=== PATIENT | female | born 1955 | race Two or more races ===

== ENCOUNTER 2018-01-24 14:50 | Emergency (ER) | payer OTHER ==
[~2018-01-24] VITALS: Ht 149.9 cm; Wt 58.5 kg
[2018-01-24 15:02] VITALS: Ht 149.9 cm; Wt 58.5 kg
[2018-01-24 16:18] LABS: BASOPHIL % 0.8 % (0-2); PLATELET COUNT 303 x10^3mcL (130-400); RED CELL DISTRIBUTION WIDTH 12.7 % (11.5-14.5)
[2018-01-24 16:30] LABS: CALCIUM 8.7 mg/dL (8.5-10.1); CARBON DIOXIDE 25.6 mmol/L (21-32); CHLORIDE SERUM 108 mmol/L (98-107); CREATININE SERUM 0.7 mg/dL (0.6-1.0); GFR1 > 60 mL/min; GLUCOSE SERUM 101 mg/dL (74-106); POTASSIUM SERUM 4.8 mmol/L (3.5-5.1); SODIUM SERUM 144 mmol/L (136-145)
[2018-01-24 16:33] LABS: C REACTIVE PROTEIN 0.4 mg/dL (<=0.9); URIC ACID 4.8 mg/dL (2.6-6.0)
[2018-01-24 16:34] LABS: ALBUMIN 3.4 g/dL (3.4-5.0); ALKALINE PHOSPHATASE 115 U/L (46-116); ALT/SGPT 18 U/L (14-59); AST/SGOT 18 U/L (15-37); BILIRUBIN TOTAL 0.45 mg/dL (0.20-1.00); TOTAL PROTEIN, SERUM 7.3 g/dL (6.4-8.2)
[2018-01-24 16:39] LABS: IRON 47 ug/dL (50-170); TOTAL IRON BINDING CAPACITY 279 ug/dL (250-450)
[2018-01-24 16:41] LABS: FREE THYROXINE INDEX 2.7 ug/dL (1.4-4.5); T4(THYROXINE) 8.7 ug/dL (4.7-13.3)
[2018-01-24 16:51] LABS: T3 TOTAL 1.09 ng/mL
[2018-01-24 17:24] VITALS: BP 114/80
== END 2018-01-24 17:25 | disposition home or self-care (01) ==
LOC: ED 14:50
PROVIDERS: Emergency Medicine
DX: M25.562 Pain in left knee (principal); I10 Essential (primary) hypertension; Z88.0 Allergy status to penicillin
CPT/HCPCS: 36415; 84439; 86431; J1885; J7512